=== PATIENT | female | born 1965 | race Caucasian/White ===

== ENCOUNTER → 2021-01-28 16:13 | Outpatient (CLI) | payer BC, SELFPAY ==
--- NOTE | 2021-01-28 16:15 | MM_ITS ---
PROCEDURE INFORMATION: Exam: Bilateral Screening 3D Mammography Exam date and time: 01/28/2021 4:15 PM Age: 56 years old Clinical indication: Screening mammogram TECHNIQUE: Imaging protocol: Bilateral screening tomosynthesis and 2D mammography including computer-aided detection (CAD) when performed. COMPARISON: No relevant prior studies available. FINDINGS: MAMMOGRAPHY: Breast composition: The breast tissue is heterogeneously dense, which may obscure small masses. Mass: Mass within the upper outer left middle 1/3 measuring 10 mm should be further assessed with spot views in CC/MLO projection. Ultrasound should also be performed. Architectural distortion: No new or suspicious architectural distortion. Calcifications: No new or suspicious calcifications are present Asymmetric density: No new or suspicious asymmetric density is present Skin thickening: None. Axillary adenopathy: None. IMPRESSION: Mass within the upper outer left middle 1/3 measuring 10 mm should be further assessed with spot views in CC/MLO projection. Ultrasound should also be performed. ASSESSMENT: BI-RADS category 0: Incomplete-need additional imaging evaluation and/or prior mammograms for comparison.
== END ==
PROVIDERS: PCP Family Medicine; Visit Provider Family Medicine
DX: Z12.31 Encounter for screening mammogram for malignant neoplasm of breast (principal)
CPT/HCPCS: 77063; 77067

== ENCOUNTER → 2021-03-04 13:38 | Outpatient (CLI) | payer BC, SELFPAY ==
--- NOTE | 2021-03-04 13:56 | MM_ITS ---
PROCEDURE: MM DIG MAMM DX UNILAT LT CAD Digital Breast Tomosynthesis Included Left breast ultrasound complete CLINICAL INDICATION: UNSPECIFIED LUMP IN LT BREAST COMPARISON: [facility] Screening-Bilateral Mammography from 06/30/2018 DOC,MG Screening-Bilateral Mammography from 01/18/2020 MG MM DIG SCREENING MAMM BI W/CAD from 01/28/2021 US US BREAST LT COMPLETE from 03/04/2021 TECHNIQUE: Problem solving views performed along with left breast ultrasound FINDINGS: On the spot compression views there is a persistent nodular measuring approximately 13 by 9 mm in the 2-3 o'clock region of the left breast. No malignant appearing microcalcifications. Left breast ultrasound: There is a solid macrolobular 14 x 12 x 7 mm nodule in the 2 o'clock region of the left breast. The margins are fairly well-circumscribed. The nodule is wider than tall with no significant posterior acoustical shadowing. Suspicious. Recommend ultrasound-guided mammotome with clip placement for further evaluation.. IMPRESSION: Suspicious solid 13 mm nodule in the 2 o'clock region of the left breast. Suggest ultrasound-guided mammotome biopsy. BI-RAD Category: 4 Suspicious Abnormality-Biopsy Considered FOLLOW-UP: BIO Biopsy Recommended (A letter has been sent to the patient regarding results of the study.) Dictated by: Umer Rosas MD 03/10/2021 08:50 Umer Rosas MD in [place] 03/10/2021 08:50
== END ==
PROVIDERS: PCP Family Medicine; Visit Provider Family Medicine
DX: N63.21 Unspecified lump in the left breast, upper outer quadrant (principal)
CPT/HCPCS: 76641; 77061; 77065; G0279